=== PATIENT | female | born 1950 | race Caucasian/White ===

== ENCOUNTER → 2016-12-14 | Outpatient (CLI) | payer BC ==
--- NOTE | 2016-12-16 12:47 | MAMMOGRAPHY REPORT ---
ULTRASOUND OF BOTH BREASTS: 12/14/2016 CLINICAL HISTORY: Patient presents for follow-up in both breasts for multiple bilateral hypoechoic b enign-appearing masses seen on prior whole breast ultrasound. She is 6 months status post a benign ultrasound-guided core biopsy in the right breast 2:00 axis. COMPARISON: Comparison is made to exams dated: 06/30/2016 mammogram, 06/15/2016 ultrasound, 06/01/20 16 mammogram, 05/29/2015 mammogram, 11/14/2014 ultrasound, and 05/28/2014 mammogram - [facility]. FINDINGS: Targeted ultrasound was performed in each breast to reevaluate the benign-appearing hypoe choic solid versus cystic masses identified in each breast on prior whole breast ultrasound. 2 benign anechoic simple cysts are seen in the 12:00 left breast. In the left 1:00 breast, 2 cm fro m the nipple, there is an oval circumscribed isoechoic to slightly hypoechoic mass measuring 3.9 x 2 .1 x 2.8 mm, previously 3.2 mm and given slight differences in technique this is considered stable. In the 1:00 left breast, 3 cm from the nipple, an oval circumscribed hypoechoic cystic-appearing ma ss measures 4.6 x 3.1 x 4.3 mm. This appears stable from the prior ultrasound. In the 2:00 left br east, 1 cm from the nipple, a circumscribed oval hypoechoic solid versus cystic mass is identified m easuring 5.5 x 3.8 mm. This previously measured 6.0 x 4.6 mm and is considered stable, given slight differences in technique. In the 2:00 periareolar left breast, there is a hypoechoic solid versus cystic mass measuring 10.5 x 9.4 x 10.7 mm, previously measured 10.8 x 9.3 x 10.5 mm, unchanged. I n the 4:00 left breast, 2 cm from the nipple, a slightly hypoechoic oval solid versus cystic mass me asures 4.1 x 3.0 x 3.9 mm, previously 4.0 x 3.2 mm, unchanged. In the adjacent 4:00 left breast, 2 cm from the nipple, another hypoechoic solid versus cystic mass is identified measuring 2.6 x 4.0 x 3.5 mm, previously 4.4 mm and also unchanged. In the 6:00 periareolar left breast, there is a round ed hypoechoic solid versus cystic mass measuring 2.9 x 2.9 x 2.9 mm, previously 3.1 mm, considered u nchanged. No mass is identified in the 7:00 left breast, confirming a resolving cyst. In the 3:00 periareolar right breast, there is a mixed echogenicity hypoechoic solid versus cystic m asses measuring 3.7 x 2.6 x 3.8mm, previously 3.6 x 3.0 x 3.4 mm, unchanged. Another oval hypoechoi c solid versus cystic mass in the 1:00 right breast, 2 cm from the nipple, measures 4.0 x 2.7 x 3.3 mm, which is newly seen. A circumscribed hypoechoic mass in the 2:00 right breast, 2 cm from the ni pple, measure 6.1 x 4.7 x 5.5 mm, newly seen. In the 2:00 periareolar right breast there is a round ed isoechoic to slightly hypoechoic mass measuring 4.1 x 3.6 x 4.7 mm, newly seen. Another hypoecho ic solid versus cystic mass in the 9:00 right breast, 3 cm from the nipple, measures 5.8 x 4.3 x 6.4 mm, stable. In the 9:00 right breast, 2 cm from the nipple, there is a rounded hypoechoic solid-ap pearing mass measuring 3.9 x 3.6 x 4.2 mm, previously 5.3 x 4.4 x 4.5 mm, considered stable to sligh tly decreased. In the 10:00 periareolar right breast, a hypoechoic mass with possible associated ca lcification measures 4.2 x 4.9 x 4.2 mm, which is newly seen. IMPRESSION: ACR-BI-RADS CATEGORY 3: PROBABLY BENIGN - FOLLOW-UP RECOMMENDED 1. There are multiple bilateral circumscribed round and oval masses scattered throughout the breast s, some of which are anechoic confirming benign cysts. However, many of the masses are hypoechoic a nd could represent benign-appearing solid masses versus complicated cysts, most likely bilateral fib rocystic change. Many of these masses within the right breast are newly visualized compared to the prior whole breast ultrasound. Nevertheless, another six-month follow-up bilateral whole breast ult rasound is recommended to ensure longer stability of the many stable masses in each breast, but also of the newly visualized similar appearing masses within the right breast. (30 minutes). 2. Annual bilateral mammography is also due at that time. These results and recommendations were discussed with the patient at the time of the exam. Lyly Bautista M.D. ay/:12/16/2016 08:15:22 Certified Veterinary Technician: Lourdes FRANCIS(Atiya)(Sally), [facility] letter sent: Follow Up Recommended 3 BI-RADS Code: ACR-BI-RADS Category 3: Probably Benign
== END | disposition home or self-care (01) ==
LOC: C.MAMM 09:07
PROVIDERS: ATTEND Family Medicine
DX: R92.8 Other abnormal and inconclusive findings on diagnostic imaging of breast (principal); N63 Unspecified lump in breast

== ENCOUNTER → 2016-12-22 | Outpatient (CLI) | payer BC ==
--- NOTE | 2016-12-22 12:29 | DIAGNOSTIC IMAGING REPORT ---
MRI right wrist RIGHT UPPER EXT JOINT WITHOUT CLINICAL HISTORY: M67.40,M18.9 Right pain. Trauma. TECHNIQUE: Multi axial MRI acquisition COMPARISON STUDY: None FINDINGS: Findings consistent with a small joint effusion. Contusion distal aspect of the navicular as well as the first carpometacarpal joint. Considerable component of these findings appear to relate to superimposed degenerative change. Findings moderate degenerative change of the articular services of the distal radius. There is small amount of fluid in the radial ulnar articulation consistent with a tear of the triangle fibrocartilage. Signal characteristics of the remaining osseous structures are unremarkable. There is a ganglion cyst adjacent to the radial styloid involving the proximal carpal tunnel measuring 12 x 10 mm. All remaining ligamentous and tendinous structures appear to be intact. IMPRESSION: 1. Tear triangle fibrocartilage. 2. Bone contusions with superimposed degenerative change of the distal carpal navicular as well as the first carpal metacarpal osseous structures. 3. Moderate degenerative change as described. 4. Ganglion cyst within the carpal tunnel immediately adjacent to the carpal navicular. Electronically signed by: David Shaver M.D. 12/22/2016 12:27 PM Dictated Date/Time: 12/22/2016 12:20 PM
== END | disposition home or self-care (01) ==
LOC: C.MRI 11:16
PROVIDERS: ATTEND Internal Medicine
DX: M67.431 Ganglion, right wrist (principal); M18.9 Osteoarthritis of first carpometacarpal joint, unspecified; S63.591A Other specified sprain of right wrist, initial encounter; X58.XXXA Exposure to other specified factors, initial encounter; M19.031 Primary osteoarthritis, right wrist

== ENCOUNTER → 2017-06-02 | Outpatient (CLI) | payer BC ==
--- NOTE | 2017-06-02 15:30 | MAMMOGRAPHY REPORT ---
BILATERAL DIGITAL DIAGNOSTIC MAMMOGRAM TOMOSYNTHESIS WITH CAD AND TARGETED LEFT ULTRASOUND: 06/02/2017 CLINICAL HISTORY: The patient presents for interval follow-up of bilateral hypoechoic masses seen on prior ultrasounds. Due for annual screening mammography. Also history of benign ultrasound guided b iopsy of a right breast mass. TECHNIQUE: Breast tomosynthesis in addition to standard 2D mammography was performed. Current study was also evaluated with a Computer Aided Detection (CAD) system. Bilateral CC and MLO 2-D and tomosy nthesis images and spot compression left CC and and MLO tomosynthesis images were obtained. COMPARISON: Comparison is made to exams dated: 12/14/2016 ultrasound, 06/30/2016 mammogram, 6 ultrasound biopsy, 06/15/2016 ultrasound, 06/01/2016 mammogram, and 05/29/2015 mammogram - [facility]. BREAST COMPOSITION: The tissue of both breasts is heterogeneously dense, which may obscure small mas ses. FINDINGS: There is a new ill-defined spiculated mass in the left upper inner quadrant far posteriorl y. The area is ill-defined and therefore difficult to measure but the central nodular component claudia ures approximately 8 mm on the tomosynthesis images. The remainder of both breasts demonstrate no patel spicious masses, calcifications, or areas of architectural distortion. Multiple fluctuating round/ov al partially circumscribed and partially obscured masses are again noted bilaterally, with multiple c ysts as well as cystic versus solid masses noted on prior ultrasound exams. A biopsy marker clip is again noted in the right medial breast from prior ultrasound guided biopsy. Targeted ultrasound was performed of the area of the new spiculated mass. In the left breast at 10:0 0, 6 cm from the nipple, there is an irregular hypoechoic 5 x 4 x 5 mm mass with non-circumscribed ma rgins. This corresponds with the new spiculated mammographic mass and is suspicious for malignancy. Recommend ultrasound guided core needle biopsy for further evaluation. As the mass is suspicious for malignancy, follow-up whole breast ultrasound was deferred, given that if the pathology results are malignant, I would recommend a bilateral breast MRI for further evaluati on which is more sensitive and specific compared to ultrasound. IMPRESSION: ACR BI-RADS CATEGORY 5: HIGHLY SUGGESTIVE OF MALIGNANCY, TARGETED ULTRASOUND ACR BI-RADS CATEGORY 5: HIGHLY SUGGESTIVE OF MALIGNANCY 1. New spiculated mass in the left upper inner quadrant mammographically, with a corresponding 5 mm irregular hypoechoic mass seen on ultrasound and the left 10:00 breast. Findings are suspicious for malignancy and ultrasound guided core needle biopsy is recommended for further evaluation. 2. Follow-up bilateral whole breast ultrasound was deferred at this time. If pathology results of l eft breast biopsy are malignant, then bilateral breast MRI is recommended for further evaluation, giv en that it is more sensitive than ultrasound. A phone call was made to the physician's office to confirm faxed results were received. The patient was verbally notified of the results. She tentatively scheduled the biopsy before leaving the depart ment. Approximately 10% of breast cancers are not detected with mammography. A negative mammographic report should not delay biopsy if a clinically suggestive mass is present. Ann Hackett M.D. ah/:06/02/2017 12:23:56 Bag Cutter: Shyann Jacobs, [facility] letter sent: Abnormal 4/5 BI-RADS Code: ACR BI-RADS Category 5: Highly Suggestive Of Malignancy Ultrasound BI-RADS: ACR BI-RAD S Category 5: Highly Suggestive Of Malignancy
== END | disposition home or self-care (01) ==
LOC: C.MAMM 11:25
PROVIDERS: ATTEND Family Medicine
DX: N63 Unspecified lump in breast (principal)

== ENCOUNTER → 2017-06-07 | Outpatient (CLI) | payer BC ==
--- NOTE | 2017-06-07 14:05 | Discharge Instructions ---
Discharge Instructions Procedure Procedure Date: Jun 07, 2017. Reason for visit: Left Mass. Discharge Discharge Date: Jun 07, 2017. Discharge Diagnosis: post left 10:00 breast ultrasound guided core biopsy Instructions Activity Recommendations: Additional Limitations (see below) Return to School/Work: no limitations Recommended Home Diet: No Limitations Provider Instructions: ACTIVITY RECOMMENDATIONS: * No lifting, pushing, pulling or exercising the affected side for three days. RETURN TO SCHOOL/WORK: * You may return to work/school after the procedure, but do not perform any strenuous activities for 24 to 48 hours. MEDICATIONS: * Tylenol (two 325 mg) every four to six hours if needed for mild pain (if not allergic to Tylenol). DIET: * Resume previous diet. SPECIAL CARE INSTRUCTIONS: * Keep biopsy site dry for 24 hours. May shower after 24 hours, but do not soak (bathe) incision. * May remove Tegaderm (plastic patch) tomorrow AFTER showering. * Leave the steri-strips on for one week. Allow the steri-strips to fall off by themselves. If not off after one week, you may remove them. You may place a Bandaid crosswise over the strips, if desired. * Apply ice 10 minutes on and 10 minutes off as needed. * Wear a bra at bedtime to sleep more comfortably for 2-3 days. * Your referring physician should have the results after approximately 5 to 7 business days. * Call for unusual bleeding, fever, drainage, etc or if you have any questions call [phone] during normal business hours or after hours call Dr Bautista, . FOLLOW UP VISIT: Follow-up with Referring Physician as scheduled. Allergies Uncoded Allergies: NAPROSYN (Allergy, Unknown, 02/19/03) Cheo Stevens Recommendations: Call your doctor if: * Temperature above 101 degrees * Pain not relieved by pain medicine ordered * There is increased drainage or redness from any incision * You have any unanswered questions or concerns. Your Doctors Instructions noted above were prepared by provider Lyly Bautista. Patient Signature Section: Patient Instructions Signature Page [place] Patient (or Guardian) Signature/Date: I have read and understand the instructions given to me by my caregivers. Caregiver/RN/Doctor Signature/Date: The above-named patient and/or guardian has received patient instructions on this date. + Original Patient Signature Page (only) stays with chart. Please make copy for patient.
--- NOTE | 2017-06-07 15:44 | MAMMOGRAPHY REPORT ---
ULTRASOUND GUIDED BIOPSY LEFT BREAST: 06/07/2017 CLINICAL HISTORY: New indeterminate 5mm solid mass in the 10:00 left breast. Patient presents for ul trasound-guided core biopsy. COMPARISON: Comparison is made to exams dated: 06/02/2017 ultrasound, 06/02/2017 mammogram, 12/14/2016 ultrasound, 06/01/2016 mammogram, 05/29/2015 mammogram, and 05/28/2014 mammogram - [facility]. PATIENT CONSENT: The procedure, risks and benefits were discussed with the patient and informed conse nt was obtained both verbally and in writing. Specific risks to this procedure include: bleeding, in fection, puncture of adjacent structure, nontarget biopsy, sampling error, pain, metal allergy and me dication reaction. PROCEDURE DESCRIPTION: A time out was performed and the left breast was agreed as the site of biopsy. The skin was prepped and draped in the usual sterile fashion. The solid 5 mm hypoechoic mass in the 10:00 left breast was chosen as the target for biopsy. Subcutaneous and intraparenchymal 1% buffered lidocaine, with and without epinephrine, was administered as local anesthesia. A skin incision was ma de. Through the incision, 6 samples were taken with a 14 gauge Achieve biopsy device. A ribbon shape d metallic marker was placed at the biopsy site. Hemostasis was achieved after manual compression. Th e patient tolerated the procedure well and there was no immediate complication. The samples were sen t to the pathology department in an appropriately labeled container. Postprocedure left CC and ML tomosynthesis images were obtained. A new ribbon-shaped metallic biopsy marker clip is seen in the upper inner 10:00 posterior left breast, aligning with the new mammograph ic mass in question. No significant postbiopsy hematoma is identified. IMPRESSION: ULTRASOUND GUIDED BIOPSY Status post ultrasound guided core needle biopsy of an indeterminate solid 5 mm mass in the 10:00 lef t breast, with biopsy marker clip placed at the site. The patient will receive notification of the biopsy results from her referring physician. Lyly Bautista M.D. ay/:06/07/2017 14:36:51 Attending Technologist: Lourdes Castañeda RT(R)(M), [facility] Aerodynamic Consultant: Dr. Lyly Bautista, [facility]
--- NOTE | 2017-06-07 15:45 | MAMMOGRAPHY REPORT ---
UNILATERAL LEFT DIGITAL DIAGNOSTIC MAMMOGRAM TOMOSYNTHESIS: 06/07/2017 CLINICAL HISTORY: Status post ultrasound-guided core biopsy of an indeterminate solid mass in the 10: 00 left breast. Please refer the report from left breast ultrasound guided core biopsy performed at the same time for full detail. IMPRESSION: POST PROCEDURE IMAGING FOR MARKER PLACEMENT Please refer the report from left breast ultrasound guided core biopsy performed at the same time for full detail. Approximately 10% of breast cancers are not detected with mammography. A negative mammographic report should not delay biopsy if a clinically suggestive mass is present. Lyly Bautista M.D. ay/:06/07/2017 14:06:27 Diversional Therapist: Lourdes MANN)(M), [facility] BI-RADS Code: Post Procedure Imaging For Marker Placement
== END | disposition home or self-care (01) ==
LOC: C.MAMM 13:08
PROVIDERS: ATTEND Family Medicine
DX: C50.912 Malignant neoplasm of unspecified site of left female breast (principal)

== ENCOUNTER → 2017-07-01 | Outpatient (CLI) | payer BC ==
[~2017-07-01] MED LIST: GADAVIST IV PRN
--- NOTE | 2017-07-02 15:24 | MAMMOGRAPHY REPORT ---
BREAST MRI OF BOTH BREASTS : 07/01/2017 CLINICAL HISTORY: Newly diagnosed left breast cancer. COMPARISON: Comparison is made to exams dated: 06/07/2017 ultrasound biopsy, 06/02/2017 ultrasound, mammogram, 12/14/2016 ultrasound, and 06/30/2016 mammogram - [facility]. Technique: The patient was placed prone in a dedicated breast imaging coil. Precontrast axial T1-diana ghted, axial T2-weighted fat saturation, and axial T1-weighted fat saturation images were obtained. After the administration of 8 mL of Gadavist IV contrast, sequential T1-weighted fat saturation image s were obtained. Subtraction images were obtained of the dynamic contrast enhanced sequences, and 3- D reformations were performed. The [employer] software was used for kinetic analysis. Findings: There is moderate background parenchymal enhancement involving bilateral breasts. There is an irregu lar enhancing 8 x 6 mm mass within the left upper inner quadrant far posteriorly, which demonstrates a mixed kinetic pattern including suspicious washout kinetics (series 501 image 50, series 6 image 44 ). Findings are consistent with the biopsy-proven malignancy. Clip artifact is seen within the mass . There are numerous T2 hyperintense circumscribed masses scattered throughout bilateral breasts, wh ich demonstrate a thin rim of enhancement on the postcontrast images and are consistent with benign c ysts. Many of the masses demonstrate corresponding T1 hyperintensity, consistent with proteinaceous material within the cysts. These correspond with the multiple masses seen on the prior ultrasound ex ams. The remainder of both breasts demonstrate no suspicious enhancing masses or areas of abnormal n on-mass enhancement. Susceptibility artifact is seen within the right 3:00 breast at the site of a b iopsy marker clip. There is no evidence of axillary adenopathy. The chest wall structures are negative. Visualized por tions of the extramammary soft tissues are unremarkable. Minimal dependent atelectasis is seen in bi lateral anterior lungs. IMPRESSION: ACR BI-RADS CATEGORY 6: KNOWN BIOPSY PROVEN MALIGNANCY 1. Enhancing 8 mm mass in the left upper inner quadrant posteriorly, consistent with the biopsy-prov en malignancy. The remainder of both breasts demonstrate no MRI evidence of malignancy. 2. Multiple benign cysts seen bilaterally. Ann Hackett M.D. ah/:07/01/2017 17:10:46 Renderer: production utility worker, [facility] letter sent: Birad 6 BI-RADS Code: ACR BI-RADS Category 6: Known Biopsy Proven Malignancy
== END | disposition home or self-care (01) ==
LOC: C.MRI 11:35
PROVIDERS: ATTEND Surgery
DX: Z17.1 Estrogen receptor negative status [ER-] (principal); C50.212 Malignant neoplasm of upper-inner quadrant of left female breast; R92.2 Inconclusive mammogram; N63.22 Unspecified lump in the left breast, upper inner quadrant; N60.11 Diffuse cystic mastopathy of right breast; N60.12 Diffuse cystic mastopathy of left breast

== ENCOUNTER → 2017-12-28 | Outpatient (CLI) | payer BC ==
[~2017-12-28] MED LIST changes: +FEXO1TAB49 PO; -GADAVIST IV PRN; +MULT-190 PO; +MULTTAB58 PO; +PARO1TAB27 PO; +PSYL43PO PO; +VNTHFA/IN INH
[2017-12-28 14:34] VITALS: BP 107/71; PULSE 104; TEMP 37.2; O2SAT 95
--- NOTE | 2017-12-28 16:40 | Radiation Oncology Follow-Up ---
Radiation Oncology Follow-Up Date of Visit Dec 28, 2017. 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 She received 5130 centigrade utilizing hypo-fractionation. Last Edited By: Dior Brown on Dec 06, 2017 13:19 History of Present Illness Ms. Echevarria has 2 paternal aunts with a history of breast cancer. She has had previous biopsies in 1998 to the left breast which was benign and last year a biopsy of the right breast which was benign. On 06/02/2017 patient underwent a 6 month follow-up bilateral mammogram. This was compared to prior mammograms from 2015 and ultrasounds from 12/14/2016. This study identified a new ill-defined spiculated mass in the left upper outer quadrant far posteriorly. This area was ill-defined and difficult to measure but the central nodular component measured approximately 0.8 cm. The remainder of both breast demonstrated no suspicious masses, calcifications or areas of architectural distortion. Biopsy clip was noted in the right medial breast from prior ultrasound-guided biopsies. Targeted ultrasound was performed of the area of the spiculated mass. In the left breast at the 10 o'clock position 6 cm from the nipple there was an irregular hypoechoic 0.5 x 0.4 x 0.5 cm mass with non-circumscribed margins. This corresponds with the new spiculated mammographic mass and was suspicious for malignancy. On 06/07/2017 the patient underwent ultrasound-guided biopsy of the left breast mass. This revealed an invasive ductal carcinoma, Josee grade 2 with no lymphovascular invasion identified. Estrogen receptors were negative, progesterone receptors were negative and HER-2/ilene overexpression was negative by immunohistochemistry and confirmed negative by FISH analysis. The Ki-67 proliferation index was 80-85% (very high). Case: [id number]. Patient cannot have bilateral breast MRIs performed on 07/01/2017. This showed an irregular enhancing mass measuring 0.8 x 0.6 cm in the left upper inner quadrant far posteriorly. This demonstrated a mixed genetic pattern including suspicious washout kinetics. These findings are consistent with the biopsy- proven malignancy. Clip artifact is seen within the mass. There were numerous T2 hyperintense circumscribed masses scattered throughout bilateral breasts demonstrating a thin rim of enhancement on the postcontrast images and are consistent with benign cysts. There was no evidence of abnormal axillary adenopathy. Patient was seen by Dr. Elena Perez. After discussion of treatment options the patient opted to proceed with breast conserving therapy. Therefore on 2016 patient underwent a needle localized left breast partial mastectomy and sentinel node biopsy. A single sentinel node was benign. The partial mastectomy specimen confirmed an invasive carcinoma oftype, grade 2 measuring 0.6 cm in size. This lesion was 0.5 cm from the nearest lateral margin. Component of the ductal carcinoma in situ, grade 2 without necrosis measuring 0.4 cm in size was present at the inferior-medial and posterior margins focally. A new superior lateral margin was taken and was benign. The AJCC pathologic staging was therefore pT1b pN0, ER negative, NV negative and HER-2/ ilene negative. Accession #: [id number]. Patient went on to have a reexcision of the inferior medial margin of the left breast performed on 07/28/2017. This showed benign breast tissue with no evidence of malignancy. Accession #: [id number]. Patient was seen by Dr. De La Cruz. He recommended systemic adjuvant chemotherapy to consist of docetaxel at 75 mg/m on day 1, cyclophosphamide 600 mg/m on day 1 repeating every 21 days. He is planning 4 cycles of chemotherapy. Patient received her first cycle of chemotherapy on August 09 and has done well to date. She is scheduled to complete her 4 cycles in mid October. We were asked to see the patient to discuss with her the role of adjuvant radiation. She completed her systemic chemotherapy and returned to our office. She underwent a CT simulation and then completed radiation therapy. She completed radiation therapy November 29, 2017. She received 5130 cGy utilizing hypo- fractionation. Interim History She has been doing well over the past month. The skin irritation at the end of treatment healed without difficulty. She has noticed no masses of the breast. She has no areas of tenderness. She has had no change of the axilla. She has noticed no swelling of her arm. She has had problems with diarrhea since her fourth cycle of chemotherapy. This had improved but continues to recur intermittently. She will have loose bowel movements occurring 3 times per day. She takes Metamucil regularly. She has a previous history of irritable bowel syndrome with constipation. She was followed at [facility]. She had 6 sessions. These are now complete. She does have a sleeve to wear when she travels. Allergies Uncoded Allergies: NAPROSYN (Allergy, Unknown, 02/19/03) Home Medications Scheduled Albuterol Hfa (Ventolin Hfa), 2 PUFFS INH Q6H Fexofenadine Hcl ([place]ina Allergy), 1 TAB PO DAILY Multiple Vitamin (Multivitamin), 1 TAB PO DAILY Ocuvite Preservision (Ocuvite Preservision), 1 TAB PO BID Paroxetine (Paxil), 20 MG PO DAILY Psyllium (Metamucil Free & Natural), 1 TSP PO DAILY Review of Systems Gastrointestinal: Symptoms: Diarrhea GI Comments: "Diarrhea comes and goes" since having chemo - very odd per pt Oral: Symptoms: No Problems Respiratory: Symptoms: WNL Urinary: Symptoms: WNL Skin: Symptoms: No Problems Other Skin Symptoms: Using daily body mosturizer to site; Breast: Right Upper Arm Measurement: 30.0 Right Mid Arm Measurement: 25.5 Right Wrist Measurement: 16.3 Left Upper Arm Measurement: 30.0 Left Mid Arm Measurement: 26.0 Left Wrist Measurement: 16.5 Arm Dominence: Right Additional Notes: She completed a distress management report and answer "no" to all questions other than she has concerns about her medical treatment choices. Physical Exam Vital Signs Date Time Temp Pulse Resp B/P (MAP) Pulse Ox O2 Delivery O2 Flow Rate FiO2 12/28/17 14:34 37.2 104 20 107/71 95 Fatigue: None General Appearance: no apparent distress Eyes: normal inspection, EOMI ENT: normal ENT inspection, hearing grossly normal Neck: no adenopathy, thyroid normal Respiratory/Chest: lungs clear, no respiratory distress, no accessory muscle use Breast: Breast examination reveals well-healed incisions of the left breast. There is resolving hyperpigmentation. There are no masses or tenderness and no axillary adenopathy. She has no skin retractions or nipple changes. Using the Franklin score cosmesis she has a good outcome. The right breast showed no masses or tenderness and no axillary adenopathy. Cardiovascular: regular rate, rhythm, no gallop, no murmur, + extra beats Extremities: no pedal edema Neurologic/Psychiatric: no motor/sensory deficits, alert, normal mood/affect Skin: warm/dry Pain Management Patient Reports Pain: No Pain Management Plan She denies pain therefore requires no pain management. Laboratory Laboratory Results: not applicable Pathology Pathology Results: were reviewed, and pertinent findings noted in HPI Imaging Imaging Studies: not applicable Assessment & Plan Plan: Continue regular follow-up with her breast surgeon and medical oncologist. She will be seeing Dr. Perez February 15, 2018. She stated at that time she plans to have her next mammogram scheduled. She will be seeing Dr. De La Cruz in medical oncology March 08, 2018. Today we completed a cancer survivorship Care plan. A copy of the document was given to the patient. She was given a survivorship booklet. She has a good understanding of her diagnosis. She also understands that there is no medication for her to take preventively because she is estrogen receptor negative. 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 We discussed the problem with intermittent diarrhea. I have asked her to try a probiotic. If this continues she will need to discuss it further with the medical oncologist or her primary care provider. We asked her to return to our office in 6 months. She may call if she has any questions or concerns in the interim. Total Time In Follow-Up I spent 20 minutes speaking to the patient in performing examination. I spent 20 minutes reviewing information, preparing the survivorship document, and completing this note. Copy To Ezra Wright M.D.; Elena Perez MD; Axel De La Cruz M.D. 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
== END | disposition home or self-care (01) ==
LOC: C.ONC 14:24
PROVIDERS: ATTEND Physician Assistant Medical
DX: Z08 Encounter for follow-up examination after completed treatment for malignant neoplasm (principal); Z92.3 Personal history of irradiation; Z85.3 Personal history of malignant neoplasm of breast